=== PATIENT | female | born 1970 | race Caucasian/White ===

== ENCOUNTER 2021-03-14 15:42 | Emergency (ER) | payer MEDICAID ==
[~2021-03-14] VITALS: Ht 162.6 cm; Wt 69.8 kg
[2021-03-14] MEDS ORDERED: ZESTRIL2.5 MG PO (15:48)
[2021-03-14] MEDS ORDERED: METFORMIN HCL500 M3 PO (15:48)
[2021-03-14] MEDS ORDERED: VICTOZA0.6 MG/0.1 SUBQ (15:49)
[2021-03-14 16:19] LABS: ABSOLUTE BASOPHILS 0.1 thou/uL (0.0-0.2); ABSOLUTE EOSINOPHILS 0.1 thou/uL (0.0-0.7); ABSOLUTE LYMPHOCYTES 3.9 thou/uL (0.8-5.3); ABSOLUTE MONOCYTES 1.1 thou/uL (0.0-1.2); BASOPHILS 0.7 %; EOSINOPHILS 0.9 %; HEMATOCRIT 34.1 % (37.0-47.0); HEMOGLOBIN 11.9 gm/dL (12.0-15.0); LYMPHOCYTES 31.8 %; MCH 31.4 pg (26.0-34.0); MCHC 34.9 g/dL (28.0-37.0); MCV 89.8 fL (80.0-100.0); MONOCYTES 9.3 %; MPV 6.5 fl. (7.2-11.1); NUCLEATED RBCS 0 /100WBC; PLATELET COUNT* 307 thou/uL (150-400); POLYS 57.3 %; RDW-CV 12.5 % (10.5-14.5); WBC 12.3 thou/uL (4.0-11.0)
[2021-03-14 16:24] LABS: URINE BILIRUBIN NEGATIVE (Negative); URINE BLOOD NEGATIVE (Negative); URINE CLARITY CLEAR; URINE COLOR YELLOW; URINE GLUCOSE-RANDOM NEGATIVE (Negative); URINE KETONES NEGATIVE (Negative); URINE LEUKOCYTES-REFLEX NEGATIVE (Negative); URINE NITRITE-REFLEX NEGATIVE (Negative); URINE PROTEIN NEGATIVE (Negative); URINE SPECIFIC GRAVITY <= 1.005 (1.005-1.030); URINE UROBILINOGEN 0.2 E.U./dl (0.2-1.0)
[2021-03-14 16:39] LABS: ALCOHOL < 10 mg/dL (<10); SALICYLATE 4.6 mg/dL (2.8-20.0)
[2021-03-14 16:41] LABS: ACETAMINOPHEN < 2 ug/mL (10-30)
[2021-03-14 16:59] LABS: AMP/METHAMP Negative (Negative); BARBITURATES Negative (Negative); BENZODIAZEPINES Negative (Negative); COCAINE Negative (Negative); METHADONE Negative (Negative); OPIATES Negative (Negative); PCP Negative (Negative); THC Negative (Negative)
[2021-03-14 17:15] LABS: ALBUMIN 3.8 g/dL (3.4-5.0); CREATININE 0.6 mg/dL (0.6-1.3); TOTAL BILIRUBIN 0.3 mg/dL (<0.1-1.0); TOTAL PROTEIN 7.3 g/dL (6.4-8.2)
[2021-03-14 17:19] LABS: CALCIUM 8.9 mg/dL (8.5-10.1)
[2021-03-14] MEDS ORDERED: RISPERDAL 3 MG T3 MG PO (19:59)
[2021-03-14] MEDS ORDERED: LISINOPRIL2.5 MG PO (20:00)
[2021-03-18 13:35] VITALS: BP 135/84
== END 2021-03-18 18:50 | disposition home or self-care (01) ==
LOC: M.ERS 15:42
PROVIDERS: Family Medicine
DX: F29 Unspecified psychosis not due to a substance or known physiological condition (principal); Z20.822 Contact with and (suspected) exposure to COVID-19; F22 Delusional disorders; I10 Essential (primary) hypertension; E11.9 Type 2 diabetes mellitus without complications; Z98.890 Other specified postprocedural states